=== PATIENT | female | born 1955 | race African-American/Black ===

== ENCOUNTER 2018-01-19 11:59 | Observation (INO) ==
--- NOTE | 2018-01-19 15:40 | ED ---
HPI General Chief complaint: Dizziness Stated complaint: Dizzy Time Seen by Provider: 01/19/18 15:30 History of Present Illness HPI narrative: Patient is a 62-year-old female history of diabetes high blood pressure high cholesterol presents emergency department with sharp substernal chest pain radiating down her left arm greater than her right arm for the past week. Patient states been gradually getting worse. She has been told by her doctors in [place] that she needed to have a stress test, she states that she had an echocardiogram which was normal but she has not done a stress test yeses has been scheduled until January. She knew she was coming down here in [place] the pain continues and now she feels like she was going to pass out should felt like she should come in the emergency department to be seen. She denies a history of heart or lung disease. Denies any abdominal pain nausea vomiting or diarrhea. States symptoms are moderate, for the past week, gradually worsening , context as above. Related Data Home Medications Medication Instructions Recorded Confirmed aspirin [Aspir-81] 81 mg PO DAILY 01/19/18 01/19/18 atorvastatin 40 mg PO DAILY 01/19/18 01/19/18 gabapentin mg PO BID 01/19/18 insulin glargine [Lantus U-100 34 unit SUB-Q DAILY 01/19/18 01/19/18 Insulin] lisinopril-hydrochlorothiazide PO DAILY 01/19/18 metformin 1,000 mg PO BID 01/19/18 01/19/18 Allergies Allergy/AdvReac Type Severity Reaction Status Date / Time No Known Allergies Allergy Verified 01/19/18 15:31 Review of Systems Except as stated in HPI: all other systems reviewed are negative PMFSH Medical History Medical History Diabetes (Acute) High cholesterol (Acute) Hypertension (Acute) Surgical History Surgical History H/O: (Acute) Social History Social History Second Hand Smoke Exposure: No Smoking Status: Never smoker How Often Do You Have a Drink Containing Alcohol: Never Recent Travel in [facility] within the Last 8 Weeks: No Recent Out of Country Travel within the Last 8 Weeks: No Immunization History Tetanus Immunization: Unsure Hx Influenza Vaccine This Season: No Exam Narrative Exam Narrative: GENERAL: Well-developed well-nourished morbidly obese female in no obvious distress SKIN: Focused skin assessment warm/dry. HEAD: Atraumatic. Normocephalic. EYES: Pupils equal and round. No scleral icterus. No injection or drainage. ENT: No nasal bleeding or discharge. Mucous membranes pink and moist. NECK: Trachea midline. No JVD. CARDIOVASCULAR: Regular rate and rhythm. No murmur appreciated. No murmurs gallops or rubs, 2+ but equal pulses in all 4 extremities per RESPIRATORY: No accessory muscle use. Clear to auscultation. Breath sounds equal bilaterally. GASTROINTESTINAL: Abdomen soft, non-tender, nondistended. Hepatic and splenic margins not palpable. MUSCULOSKELETAL: No obvious deformities. No clubbing. No cyanosis. No edema. NEUROLOGICAL: Awake and alert. No obvious cranial nerve deficits. Motor grossly within normal limits. Normal speech. PSYCHIATRIC: Appropriate mood and affect; insight and judgment normal. Course Initial Documented Vital Signs Temperature 98.0 F 01/19/18 12:03 Pulse Rate 80 01/19/18 12:03 Respiratory Rate 19 01/19/18 12:03 Blood Pressure 124/63 01/19/18 12:03 Last Documented Vital Signs Temperature 98.0 F 01/19/18 12:03 Pulse Rate 80 01/19/18 12:03 Respiratory Rate 19 01/19/18 12:03 Blood Pressure 124/63 01/19/18 12:03 Pulse Oximetry 100 01/19/18 15:38 Medical Decision Making MDM Narrative Medical decision making narrative: Patient room to the emergency department, she appears well in no obvious distress, does have a history of diabetes high blood pressure high cholesterol and is overweight. She has sharp pain radiating down her left and right arm accompanied with some dizziness. I discussed with her that her initial EKG troponin chest x-ray are negative but I cannot completely exclude coronary artery disease as a cause of her pain until she has a stress test. States that she does have a stress test scheduled in the end of January by her primary care physician in [place], I discussed that until a stress test is done I cannot give her complete reassurance that this is not her heart and she is taking some risk by leaving the hospital. She ultimately decided that she would rather stay in the hospital and be worked up in the chest pain center. Afterwards I discussed that if her cardiac workup were to be negative that she should follow-up with her primary care physician as soon as possible. Differential Diagnosis Differential Diagnosis: ACS, AK, GERD, reflux, pneumonia unlikely. Lab Data Result diagrams: 01/19/18 15:50 01/19/18 15:50 Lab Results 01/19/18 01/19/18 01/19/18 Range/Units 15:50 15:50 15:50 WBC 9.8 (4.0-11.0) th/mm3 RBC 4.67 (4.00-5.30) mil/mm3 Hgb 13.9 (11.6-15.3) gm/dL Hct 42.3 (35.0-46.0) % MCV 90.6 (80.0-100.0) fL MCH 29.8 (27.0-34.0) pg MCHC 32.9 (32.0-36.0) % RDW 13.5 (11.6-17.2) % Plt Count 348 (150-450) th/mm3 MPV 9.7 (7.0-11.0) fL Neut % (Auto) 48.3 (16.0-70.0) % Lymph % (Auto) 37.3 (9.0-44.0) % Schuyler % (Auto) 11.8 H (0.0-8.0) % Eos % (Auto) 2.3 (0.0-4.0) % Baso % (Auto) 0.3 (0.0-2.0) % Neut # (Auto) 4.7 (1.8-7.7) th/mm3 Lymph # (Auto) 3.7 (1.0-4.8) th/mm3 Schuyler # (Auto) 1.2 H (0.0-0.9) th/mm3 Eos # (Auto) 0.2 (0.0-0.4) th/mm3 Baso # (Auto) 0.0 (0.0-0.2) th/mm3 WBC Differential . Differential Comment Auto diff final PT 10.7 (9.8-11.6) sec INR 1.1 Ratio APTT 26.2 (24.3-30.1) sec Sodium 143 (136-145) meq/L Potassium 4.3 (3.5-5.1) meq/L Chloride 109 H (98-107) meq/L Carbon Dioxide 24.6 (21.0-32.0) meq/L Anion Gap 9 (5-15) meq/L BUN 12 (7-18) mg/dL Creatinine 0.96 (0.50-1.00) mg/dL Estimated GFR 71 L (>89) mL/min Random Glucose 80 (74-106) mg/dL Calcium 9.4 (8.5-10.1) mg/dL Total Bilirubin 0.3 (0.2-1.0) mg/dL AST 19 (15-37) U/L ALT 20 (10-53) U/L Alkaline Phosphatase 123 H (45-117) U/L Troponin I Less than 0.02 L (0.02-0.05) ng/mL Total Protein 7.7 (6.4-8.2) g/dL Albumin 3.4 (3.4-5.0) g/dL Imaging Data Radiologist's impression: Chest X-Ray 01/19/18 15:38 CONCLUSION: No acute cardiopulmonary disease. Discharge Plan Discharge Disposition Patient Disposition: 30 Still Patient Discharge Details Diagnosis: Chest pain Physicians Team ED Provider: Migue Sandoval Rxs /Orders / Referrals /Forms Prescriptions: No Action metformin 1,000 mg Tablet 1,000 mg PO BID RF: 0 atorvastatin 40 mg Tablet 40 mg PO DAILY RF: 0 insulin glargine [Lantus U-100 Insulin] 100 unit/mL Solution 34 unit SUB-Q DAILY RF: 0 gabapentin 300 mg Capsule PO BID RF: 0 lisinopril-hydrochlorothiazide 10-12.5 mg Tablet PO DAILY RF: 0 aspirin [Aspir-81] 81 mg Tablet,Delayed Release (Dr/Ec) 81 mg PO DAILY RF: 0 Status ED Status: Admitted Observation Patient
--- NOTE | 2018-01-19 16:07 | XR ---
EXAM DATE: 01/19/2018 4:05 PM EDT AGE/SEX: 62 years / Female INDICATIONS: Chest pain. CLINICAL DATA: This is the patient's initial encounter. Patient reports that signs and symptoms have been present for 2 weeks and indicates a pain score of 6/10. MEDICAL/SURGICAL HISTORY: None. None. COMPARISON: No prior exams available for comparison. FINDINGS: A single AP view of the chest demonstrates the lungs to be symmetrically aerated without evidence of mass, infiltrate or effusion. The cardiomediastinal contours are unremarkable. Osseous structures a re intact. CONCLUSION: No acute cardiopulmonary disease. Electronically signed by: Lakhwinder Dixon MD 01/19/2018 4:06 PM EDT
[2018-01-19 16:29] LABS: Baso % (Auto) 0.3 % (0.0-2.0); Eos # (Auto) 0.2 th/mm3 (0.0-0.4); Eos % (Auto) 2.3 % (0.0-4.0); Hematocrit 42.3 % (35.0-46.0); Hemoglobin 13.9 gm/dL (11.6-15.3); Lymph # (Auto) 3.7 th/mm3 (1.0-4.8); Lymph % (Auto) 37.3 % (9.0-44.0); Mean Corpuscular HGB Conc 32.9 % (32.0-36.0); Mean Corpuscular Hemoglobin 29.8 pg (27.0-34.0); Mean Corpuscular Volume 90.6 fL (80.0-100.0); Mean Platelet Volume 9.7 fL (7.0-11.0); Mono # (Auto) 1.2 th/mm3 (0.0-0.9); Mono % (Auto) 11.8 % (0.0-8.0); Neut # (Auto) 4.7 th/mm3 (1.8-7.7); Neut % (Auto) 48.3 % (16.0-70.0); Platelet Count 348 th/mm3 (150-450); Red Blood Count 4.67 mil/mm3 (4.00-5.30); Red Cell Distribution Width 13.5 % (11.6-17.2); White Blood Count 9.8 th/mm3 (4.0-11.0)
[2018-01-19 16:35] LABS: Activated Partial Thrombo Time 26.2 sec (24.3-30.1); INR 1.1 Ratio
[2018-01-19 16:41] LABS: Prothrombin Time 10.7 sec (9.8-11.6)
[2018-01-19 16:49] LABS: Albumin 3.4 g/dL (3.4-5.0); Anion Gap 9 meq/L (5-15); Aspartate Aminotransferase 19 U/L (15-37); Blood Urea Nitrogen 12 mg/dL (7-18); Calcium 9.4 mg/dL (8.5-10.1); Carbon Dioxide 24.6 meq/L (21.0-32.0); Chloride 109 meq/L (98-107); Glomerular Filtration Rate 71 mL/min (>89); Glucose,Random 80 mg/dL (74-106); Potassium 4.3 meq/L (3.5-5.1); Sodium 143 meq/L (136-145)
[2018-01-19 16:57] LABS: Alanine Aminotransferase 20 U/L (10-53); Alkaline Phosphatase 123 U/L (45-117); Total Protein 7.7 g/dL (6.4-8.2)
[2018-01-19] MEDS ORDERED: Acetaminophen 500 MG Tablet PO PRN (17:56)
--- NOTE | 2018-01-19 18:08 | ECG ---
Date Performed: 01/19/2018 Time Performed: 12:23:55 PTAGE: 62 years EKG: Sinus rhythm NORMAL ECG NO PREVIOUS TRACING DOCTOR: Alisha Gonsalez Interpretating Date/Time 01/19/2018 18:07:10
[2018-01-19] MEDS ORDERED: Dextrose 50% in Water 50 ML Vial IV.PUSH PRN (18:55)
--- NOTE | 2018-01-19 18:55 | P.HPCA ---
History of Present Illness Primary Care Physician: Barrie Berkowitz Chief Complaint: Chest pain History of Present Illness: 62 year-old female with history of type 2 diabetes, hypertension, and hyperlipidemia presents emergency room for further evaluation of chest pain. Onset 2 weeks. Location substernal with radiation to left anterior chest, left shoulder, left-sided neck. Characterized as sharp. Duration seconds. Moderate in severity. No associated symptoms of dyspnea, nausea, vomiting, or diaphoresis. No known precipitating or relieving factors. Touching area makes pain worse. Episodes increasing in frequency. Visiting from [place], arrived last evening via plane. Recently seen by PCP regarding above symptoms and is scheduled for a cardiac stress test in January. Completed echocardiogram Thursday , results unknown. No known coronary artery disease. Remote cardiac testing reported to be unremarkable. Otherwise has been in her general state of health , without recent illness or fever. No known injury or recent trauma. - Diagnosis (1) Chest pain, atypical (2) Type 2 diabetes mellitus (3) Hyperlipidemia (4) Hypertension Review of Systems All other systems reviewed negative except as stated in HPI PMFSH - History History Provided By: Patient - Medical History Medical History: Medical History (Last Reviewed 01/19/18 @ 18:48 by HEMAL Taylor) Diabetes High cholesterol Hypertension - Surgical History Surgical History: Surgical History (Last Reviewed 01/19/18 @ 18:49 by HEMAL Taylor) H/O: - Tobacco History Second Hand Smoke Exposure: No Smoking Status: Never smoker - Alcohol History How Often Do You Have a Drink Containing Alcohol: Never - Travel History History of Recent Travel: Yes (arrived from [place] to [place] last evening) Recent Travel in the [facility] Within the Last 8 Weeks: Yes Recent Travel Out of the Country Within the Last 8 Weeks: No - Immunization History Tetanus Immunization: Unsure Hx Influenza Vaccine This Season: No Medications and Allergies Active Medications: Active Medications Acetaminophen (Tylenol) 500 mg PO Q4H PRN PRN Reason: HEADACHE Nitroglycerin (Nitrostat Sl) 0.4 mg SL Q5M PRN PRN Reason: CHEST PAIN Sodium Chloride (Ns Flush) 2 ml IV.FLUSH UNSCH PRN PRN Reason: FLUSH AFTER USING IV ACCESS Sodium Chloride (Ns Flush) 2 ml IV.FLUSH BID MARIA D Sodium Chloride (Ns Flush) 2 ml IV.FLUSH PRN PRN PRN Reason: FLUSH AFTER USING IV ACCESS Allergies Allergy/AdvReac Type Severity Reaction Status Date / Time No Known Allergies Allergy Verified 01/19/18 15:31 Home Medications Medication Instructions Recorded Confirmed Type aspirin [Aspir-81] 81 mg PO DAILY 01/19/18 01/19/18 History atorvastatin 40 mg PO DAILY 01/19/18 01/19/18 History gabapentin mg PO BID 01/19/18 History insulin glargine [Lantus U-100 34 unit SUB-Q DAILY 01/19/18 01/19/18 History Insulin] lisinopril-hydrochlorothiazide PO DAILY 01/19/18 History metformin 1,000 mg PO BID 01/19/18 01/19/18 History Exam Vital signs: Vital Signs 01/19/18 12:03 01/19/18 15:38 01/19/18 17:05 Temperature 98.0 F Pulse Rate 80 78 76 Respiratory Rate 19 16 16 Blood Pressure 124/63 126/64 122/65 Pulse Oximetry 100 98 Intake & Output 01/18/18 01/19/18 01/19/18 18:59 06:59 18:59 Weight 97.522 kg Narrative: -English obese female, very pleasant, in no acute distress - Constitutional no acute distress, morbidly obese, cooperative - Routine HEENT Exam Head: Present: normocephalic, atraumatic Eye: Present: EOMI, PERRL, normal accommodation ENT: Present: mucous membranes moist - Routine Neck Exam Present: supple, full ROM - Routine Chest/Breast/Axilla Exam Chest wall: Present: tenderness (Chest wall pain easily reproduced with light palpation.) - Routine Respiratory Exam Present: CTA bilaterally. Absent: rhonchi, wheezes, crackles - Routine Cardiovascular Exam Present: RRR. Absent: murmur, gallop, rubs - Routine Abdominal Exam Present: soft, normoactive bowel sounds. Absent: tenderness, distended - Routine Extremities Exam Present: full ROM, pulses intact. Absent: edema, joint swelling - Routine Skin Exam Present: intact, warm, normal turgor - Routine Neurological Exam Present: alert, oriented X3, CN II-XII intact, normal speech - Routine Psychiatric Exam Present: normal affect, normal thought process, cooperative, good insight, good judgment. Absent: anxious Results 01/19/18 15:50 01/19/18 15:50 Cardiac Enzymes 01/19/18 Range/Units 15:50 AST 19 (15-37) U/L Troponin I Less than 0.02 L (0.02-0.05) ng/mL Coagulation 01/19/18 Range/Units 15:50 PT 10.7 (9.8-11.6) sec APTT 26.2 (24.3-30.1) sec CBC 01/19/18 Range/Units 15:50 WBC 9.8 (4.0-11.0) th/mm3 RBC 4.67 (4.00-5.30) mil/mm3 Hgb 13.9 (11.6-15.3) gm/dL Hct 42.3 (35.0-46.0) % Plt Count 348 (150-450) th/mm3 Neut # (Auto) 4.7 (1.8-7.7) th/mm3 Lymph # (Auto) 3.7 (1.0-4.8) th/mm3 Owen # (Auto) 1.2 H (0.0-0.9) th/mm3 Eos # (Auto) 0.2 (0.0-0.4) th/mm3 Baso # (Auto) 0.0 (0.0-0.2) th/mm3 Comprehensive Metabolic Panel 01/19/18 Range/Units 15:50 Sodium 143 (136-145) meq/L Potassium 4.3 (3.5-5.1) meq/L Chloride 109 H (98-107) meq/L Carbon Dioxide 24.6 (21.0-32.0) meq/L BUN 12 (7-18) mg/dL Creatinine 0.96 (0.50-1.00) mg/dL Calcium 9.4 (8.5-10.1) mg/dL AST 19 (15-37) U/L ALT 20 (10-53) U/L Alkaline Phosphatase 123 H (45-117) U/L Total Protein 7.7 (6.4-8.2) g/dL Albumin 3.4 (3.4-5.0) g/dL Intake and Output 01/19/18 01/19/18 01/19/18 06:59 14:59 22:59 Other: Weight 97.522 kg Patient Weight 01/20/18 06:59 Weight 97.522 kg EKG interpretations - EKG EKG results cardiology: sinus rhythm, normal axis, normal QRS, normal ST/T Caprini VTE Risk Assessment Caprini VTE Risk Assessment: Moderate/High Risk (score >= 2) Caprini Risk Assessment Model: Point Value = 1 Point Value = 2 Point Value = 3 Point Value = 5 Age 41-60 Minor surgery BMI > 25 kg/m2 Swollen legs Varicose veins or History of unexplained or recurrent spontaneous Oral contraceptives or hormone replacement Sepsis (< 1 month) Serious lung disease, including pneumonia (< 1 month) Abnormal pulmonary function Acute myocardial infarction Congestive heart failure (< 1 month) History of inflammatory bowel disease Medical patient at bed rest Age 61-74 Arthroscopic surgery Major open surgery (> 45 min) Laparoscopic surgery (> 45 min) Malignancy Confined to bed (> 72 hours) Immobilizing plaster cast Central venous access Age >= 75 History of VTE Family history of VTE Factor V Leiden Prothrombin [id number] Lupus anticoagulant Anticardiolipin antibodies Elevated serum homocysteine Heparin-induced thrombocytopenia Other congenital or acquired thrombophilia Stroke (< 1 month) Elective arthroplasty Hip, pelvis, or leg fracture Acute spinal cord injury (< 1 month) Prophylaxis Regimen: Total Risk Factor Score Risk Level Prophylaxis Regimen 0-1 Low Early ambulation 2 Moderate Order ONE of the following: *Sequential Compression Device (SCD) *Heparin 5000 units SQ BID 3-4 Higher Order ONE of the following medications: *Heparin 5000 units SQ TID *Enoxaparin/Lovenox 40 mg SQ daily (WT < 150 kg, CrCl > 30 mL/min) *Enoxaparin/Lovenox 30 mg SQ daily (WT < 150 kg, CrCl > 10-29 mL/min) *Enoxaparin/Lovenox 30 mg SQ BID (WT < 150 kg, CrCl > 30 mL/min) AND/OR *Sequential Compression Device (SCD) 5 or more Highest Order ONE of the following medications: *Heparin 5000 units SQ TID (Preferred with Epidurals) *Enoxaparin/Lovenox 40 mg SQ daily (WT < 150 kg, CrCl > 30 mL/min) *Enoxaparin/Lovenox 30 mg SQ daily (WT < 150 kg, CrCl > 10-29 mL/min) *Enoxaparin/Lovenox 30 mg SQ BID (WT < 150 kg, CrCl > 30 mL/min) AND *Sequential Compression Device (SCD) Assessment and Plan - Assessment (1) Chest pain, atypical Code(s): R07.89 - Other chest pain Status: Acute Plan: Admitted chest pain center. Continue ruling out ACS with 3 sets of EKGs and cardiac enzymes. Monitor on telemetry overnight. Will be seen evaluated by Dr. Todd Murillo in a.m. Likely will proceed with chemical stress test in morning. This will be determined after evaluation by environmental engineering manager. Patient verbalizes understanding and agreeable to plan of care. Reassurance provided discomfort likely musculoskeletal chest wall pain his pain is easily reproduced with palpation. (2) Type 2 diabetes mellitus Code(s): E11.9 - Type 2 diabetes mellitus without complications Status: Acute Plan: SSI low dose coverage. Hold metformin. Continue Lantus. (3) Hyperlipidemia Code(s): E78.5 - Hyperlipidemia, unspecified Status: Chronic Plan: Continue atorvastatin (4) Hypertension Code(s): I10 - Essential (primary) hypertension Status: Chronic Plan: Continue lisinopril and hydrochlorothiazide. Continue to monitor. (2) Type 2 diabetes mellitus Qualifiers: Diabetes mellitus terminal manager insulin use: unspecified nursing home insulin use status Diabetes mellitus complication status: with unspecified complications Qualified Code(s): E11.8 - Type 2 diabetes mellitus with unspecified complications (3) Hyperlipidemia Qualifiers: Hyperlipidemia type: unspecified Qualified Code(s): E78.5 - Hyperlipidemia, unspecified (4) Hypertension Qualifiers: Hypertension type: unspecified Qualified Code(s): I10 - Essential (primary) hypertension
[2018-01-19 19:21] LABS: Creatine Kinase 146 U/L (26-192)
[2018-01-19] MEDS: Insulin NovoLOG Aspart Correctional Sugar Inj SQ SCH (21:02)
[2018-01-19 22:28] LABS: Creatine Kinase 89 U/L (26-192)
[2018-01-20] MEDS ORDERED: INSULIN GLARGINE 34 UNIT SQ SCH (09:00)
[2018-01-20] MEDS ORDERED: Insulin Detemir Inj 1,000 UNIT/10 ML Vial SQ SCH (09:00)
[2018-01-20] MEDS ORDERED: Aspirin 325 MG Tablet PO SCH (09:00)
[2018-01-20] MEDS ORDERED: Lisinopril 10 MG Tablet PO SCH (09:00)
[2018-01-20] MEDS ORDERED: Non-Formulary Drug (Lisinopril-Hydrochlorothiazide [Lisinopril-Hydrochlorothiazide] 1 TAB) PO SCH (09:00)
[2018-01-20 09:01] VITALS: RESP 18; O2SAT 98
[2018-01-20] MEDS: Insulin NovoLOG Aspart Correctional Sugar Inj SQ SCH ×2 (09:05→14:15)
[2018-01-20] MEDS ORDERED: Regadenoson Inj 0.4 MG/5 ML Syringe IV.PUSH ONE (11:29)
--- NOTE | 2018-01-20 13:44 | NM ---
EXAM DATE: 01/20/2018 1:31 PM EDT AGE/SEX: 62 years / Female INDICATIONS:Angina. . Chest pain. CLINICAL DATA: This is the patient's initial encounter. Patient reports that signs and symptoms have been present for 1 day and indicates a pain score of 10/10. MEDICAL/SURGICAL HISTORY: Hypertension. Hysterectomy. COMPARISON: No prior exams available for comparison. DOSE: 8.5 mCi Tc 99m Myoview at rest 27.5 mCi [id number] at stress 0.4 mg Lexiscan STRESS SYMPTOMS: Shortness of breath. Headache. EJECTION FRACTION: 59 % TECHNIQUE: The patient underwent pharmacologic stress with infusion of prescribed dose. Continuous ECG tracing was monitored during stress. Gated SPECT imaging was performed after stress and conventi onal SPECT imaging was performed at rest. The examination was performed on a SPECT/CT scanner, both attenuation and non-corrected datasets were reviewed. FINDINGS: Distribution: The maximum perfused segment at stress is in the anterior wall. Perfusion Study: The pattern of perfusion at stress is within normal limits. There is a summed st ress score of 1. Gated Study: There are intact wall motion and wall thickening without hypokinetic or dyskinetic segm ents. The ejection fraction is calculated at 59%. RISK CATEGORY: Low (<1% Annual Motality Rate) CONCLUSION: 1. Normal wall motion and calculated ejection fraction. 2. No fixed or reversible wall defect to suggest ischemia or infarction. Electronically signed by: Lakhwinder Dixon MD 01/20/2018 1:43 PM EDT
[2018-01-20 15:04] VITALS: BP 130/76; PULSE 76; TEMP 98.1
--- NOTE | 2018-01-20 15:56 | TR ---
Date Performed: 01/20/2018 Time Performed: 11:40:14 DOCTOR: Todd Murillo DRUG LIST: CLINICAL HISTORY: REASON FOR TEST: REASON FOR ENDING: OBSERVATION: CONCLUSION: COMMENTS: Lexiscan stress test was performed under standard four minute protocol. Radionuclide was injected one minute prior to ending the test. No electrocardiographic abormalities were present t o suggest ischemia. Nuclear imaging and interpretation are pending.
--- NOTE | 2018-01-20 16:26 | ECG ---
Date Performed: 01/19/2018 Time Performed: 20:54:51 PTAGE: 62 years EKG: Sinus rhythm NORMAL ECG PREVIOUS TRACING : 01/19/2018 18.11 Since previous tracing, no significant change noted DOCTOR: Todd Murillo Interpretating Date/Time 01/20/2018 16:25:47
--- NOTE | 2018-01-20 16:34 | ECG ---
Date Performed: 01/19/2018 Time Performed: 18:11:04 PTAGE: 62 years EKG: Sinus rhythm NORMAL ECG PREVIOUS TRACING : 01/19/2018 12.23 Since previous tracing, no significant change noted DOCTOR: Todd Murillo Interpretating Date/Time 01/20/2018 16:32:18
== END 2018-01-20 18:00 | disposition home or self-care (01) ==
LOC: NEPFCDU 11:59 → NEPD 11:59 → NEDA 11:59 → NEPFCDU 18:30
PROVIDERS: ADMIT Internal Medicine Interventional Cardiology; ATTEND Internal Medicine Interventional Cardiology